=== PATIENT | male | born 1975 | race Caucasian/White ===

== ENCOUNTER 2017-05-27 04:41 | Emergency (ER) | payer OTHER ==
[~2017-05-27] VITALS: Ht 177.8 cm; Wt 122.5 kg
--- NOTE | ~2017-05-27 | EKG ---
[address] [employer] [place] [address] ELECTROCARDIOGRAM REPORT Name: GERSON MC Room #: [id number] Admission: 05/27/17 Attend Phys: Discharge: 05/27/17 Date of : 79 Report #: [id number] THIS REPORT FOR: //name// [facility] ED Test Date: 2017-05-27 Test Time: 04:50:29 Pat Name: GERSON MC Department: Room: Gender: [employer]: JR : 1975 Requested By: Finn Churchill Order Number: [id number] MD: Mario Alberto Tate Measurements Intervals [place] Rate: 75 P: 1 DE: 143 QRS: -4 QRSD: 102 T: 46 QT: 378 QTc: 423 Interpretive Statements Sinus rhythm Normal tracing No previous ECG available for comparison Electronically Signed On 05-27-2017 7:51:54 CDT by Mario Alberto Tate [email or web address] <ELECTRONICALLY SIGNED> By: Mario Alberto Tate MD, FACC 05/27/17 0751 0450 0450 Mario Alberto Tate MD, FACC /EPI
[2017-05-27 05:22] LABS: ABSOLUTE NEUTROPHILS 6.4 thou/uL (1.4-8.2); BASOPHILS 1.2 % (0.0-2.0); EOSINOPHILS 3.6 % (0.0-3.0); HEMOGLOBIN 16.7 gm/dL (14.0-18.0); LYMPHOCYTES 30.4 % (24.0-44.0); MCH 30.9 pg (26.0-34.0); MCHC 34.2 g/dL (28.0-37.0); MCV 90.5 fL (80.0-100.0); MONOCYTES 8.9 % (1.0-8.0); PLATELET COUNT 217 thou/uL (150-400); POLYS 55.9 % (36.0-66.0); RBC 5.42 mil/uL (4.50-6.00); RDW 14.1 % (10.5-14.5); WBC 11.4 thou/uL (4.0-11.0)
[2017-05-27 05:25] LABS: MANUAL DIFF NO
[2017-05-27 06:29] LABS: ANION GAP 8 mmol/L (7-16); BUN 15 mg/dL (7-18); CALCIUM 8.6 mg/dL (8.5-10.1); CHLORIDE 103 mmol/L (98-107); CO2 25 mmol/L (21-32); CREATININE 0.8 mg/dL (0.7-1.3); GLUCOSE 105 mg/dL (74-106); POTASSIUM 4.1 mmol/L (3.5-5.1); SODIUM 136 mmol/L (136-145); TROPONIN-I < 0.04 ng/mL (<0.04-0.07)
[2017-05-27 06:40] VITALS: BP 139/90
== END 2017-05-27 06:41 | disposition home or self-care (01) ==
LOC: ER 04:41
PROVIDERS: Emergency Medicine
DX: R07.89 Other chest pain (principal); F17.210 Nicotine dependence, cigarettes, uncomplicated; F10.99 Alcohol use, unspecified with unspecified alcohol-induced disorder; I10 Essential (primary) hypertension